=== PATIENT | male | born 1990 | race Two or more races ===

== ENCOUNTER 2022-11-29 14:48 | Emergency (ER) | payer SELFPAY ==
[2022-11-29 15:02] VITALS: BP 134/84; PULSE 97; RESP 18; TEMP 36.8; O2SAT 96; BMI 28.8
--- NOTE | 2022-11-29 15:02 | ED_ITS ---
HPI - General Adult General Chief complaint: Urogenital-Male Stated complaint: Genital issues Time Seen by Provider: 11/29/22 15:12 History of Present Illness HPI narrative: Patient is a 32 year old male presenting with urethral discharge that started today. He reports that it is yellow in color and he has had similar symptoms in the past and was treated for an STD. He reports that he has had new sexual partners recently. Denies fevers, chills, abdominal pain, nausea, vomiting, dy suria. Related Data Previous Rx's Medication Instructions Recorded doxycycline hyclate 100 mg capsule 100 mg PO BID 10 days #20 caps 11/29/22 metronidazole 500 mg tablet 500 mg PO BID 7 days #14 tabs 11/29/22 Allergies Allergy/AdvReac Type Severity Reaction Status Date / Time No Known Allergies Allergy Verified 11/29/22 15:02 Review of Systems Review of Systems: Constitutional : No Weight loss, No Fever, No Chills, No Fatigue, No Malaise ENT/Mouth : No sore throat, No Rhinorrhea Eyes: No Eye Pain, No Swelling, No Redness Cardiovascular : No Chest Pain, No SOB, No Dyspnea on Exertion, No Orthopnea, No Edema, No Palpitations Respiratory : No Cough, No Sputum, No Wheezing Gastrointestinal : No Nausea, No Vomiting, No Diarrhea, No Constipation, No abdominal Pain, No Hematochezia, No Melena Genitourinary :+discharge, No Dysuria, No Urinary Frequency, No Hematuria, Musculoskeletal : No joint pain, No Myalgias, No Joint Swelling Skin : No Skin Lesions, No rash Neuro : No Weakness, No Numbness, No Dizziness, No Headache Psych : No Anxiety/Panic, No Depression Heme/Lymph: No Bruising, No Bleeding,No Lymphadenopathy Endocrine : No Polyuria, No Polydipsia All other systems reviewed and are negative Yes all other systems are reviewed and are negative [facility] Social History Social History Advance Directives: No Advance Directives Information Provided: No Physical Exam ED Vital Signs: Vital Signs - 24 hr 11/29/22 15:02 Temperature 98.2 F Pulse Rate 97 Respiratory Rate 18 Blood Pressure 134/84 Pulse Oximetry 96 Oxygen Delivery Method Room Air BMI result Body Mass Index 28.8 VSS Appearance: Alert.? Oriented X3.? No acute distress.? Head: Normocephalic, atraumatic, no step-offs or deformities Eyes: Pupils equal, round and reactive to light.? CVS: Normal heart rate and rhythm.? Pulses normal.? Respiratory: No respiratory distress.? Breath sounds normal.? Abdomen: Soft and nontender.? Skin: Skin warm and dry.? Normal skin color.? Normal skin turgor.? Extremities: No lower extremity edema.? No calf ttp. 5/5 strength to bilateral upper and lower extremities Neuro: Oriented X 3.? No motor deficit.? No sensory deficit. CN 2-12 intact Sensitive exam refused. Course Course Course Narrative: This is an RME: Additional HPI, ROS, PE not included below will be deferred to primary provider. 32 year old male presenting with urethral discharge starting this morning. He reports its yellow and he has had this before. Plan: swabs, Reevaluation(s) Reevaluation #1: Patient tested positive for gonorrhea, he was adequately treated. Called patient to discuss results no answer. Form was filled out and sent to the state. Time: 11:08 Medications Administered Discontinued Medications Generic Name Dose Route Start Last Admin Trade Name Jie PRN Reason Stop Dose Admin Ceftriaxone Sodium 500 mg 11/29/22 15:06 11/29/22 15:19 Ceftriaxone Sodium 500 Mg Vial IM 11/29/22 15:07 500 mg ONCE ONE Administration Doxycycline Monohydrate 100 mg 11/29/22 15:06 11/29/22 15:19 Doxycycline Monohydrate 100 Mg Capsule PO 11/29/22 15:07 100 mg ONCE ONE Administration Metronidazole 500 mg 11/29/22 15:06 11/29/22 15:19 Metronidazole 500 Mg Tablet PO 11/29/22 15:07 500 mg ONCE ONE Administration Medical Decision Making Medical Decision Making [facility] Narrative: 15:10 32 year old male with yellow urethral discharge, concern for STD. Exam benign, sensitive exam refused. This is likely chlamydia vs gonorrhea. Will rule out urinary tract infection with UA. I do not suspect pyelonephritis due to no fever, chills or dysuria. Unlikely nephrolithiasis due to symptoms and history of new sexual partner. I do not suspect forniers. Plan: UA and CT NG, discharge from the waiting room with ceftriaxonetrena metro Patient agrees to prophylactic treatment for gonorrhea, chlamydia and trichomonas. 500mg IM ceftriaxone has been given here and scripts for doxycycline 100 mg po BID X 7 days and metronidazole 500 mg po BID X 7 days have been given to the patient. Educated on safe sex practices, full pannel STD testing and speaking to? partners on possible STD. Differential Diagnosis Differential Diagnoses: The differential diagnosis associated with the presentation includes This is likely chlamydia vs gonorrhea. Will rule out urinary tract infection with UA. I do not suspect pyelonephritis due to no fever, chills or dysuria. Unlikely nephrolithiasis due to symptoms and history of new sexual partner. I do not suspect forniers. Admission/Observation Consideration of admission/observation: Escalation of care including admission/observation considered Not indicated. Lab Data Labs: Lab Results 11/29/22 Range/Units 15:33 Urine Color Yellow Urine Appearance Clear Urine pH 5.5 (5.0-9.0) Ur Specific [place] 1.020 (1.005-1.025) Urine Protein Trace (Neg-Trace) mg/dL Urine Glucose (UA) Negative (Negative) mg/dL Urine Ketones Negative (Negative) mg/dL Urine Blood Negative (Negative) Urine Nitrite Negative (Negative) Ur Leukocyte Esterase Small (1+) H (Negative) Urine RBC 0-2 (0-2) /HPF Urine WBC 0-5 (0-5) /HPF Ur Squamous Epith Cells 0-2 (0-2) /HPF Urine Bacteria None Seen (None Seen) Hyaline Casts 0-2 (0-2) /LPF Chlam trachomat DNA PCR NOT DETECTED (Not Detect.) N.gonorrhoeae DNA (PCR) DETECTED A (Not Detect.) Prescription Management I considered prescription management with: Antibiotic Core Measures AMI core measures followed: Yes Measure exclusions: not indicated Discharge Plan Discharge Clinical Impression: Encounter for assessment of STD exposure Patient Disposition: Home, Self-Care Instructions: Sexually Transmitted Diseases (ED), Safe Sex Practices (ED) Additional Instructions: Take your medications as prescribed. If you were prescribed antibiotics today, it is important that you take your medication to their entirety, do not skip any doses, do not finish them early. Follow-up with your primary care provider this week. Return to the emergency department with new or worsening symptoms. Such as fevers, chills, chest pain, shortness of breath, nausea, vomiting, dizziness, headache, vision changes, lethargy In case of emergency call 911 You were treated here today with ceftriaxone, a medication that treats g onorrhea. I have sent to your pharmacy Metronidazole that covers trichomonas, and Doxycycline which covers for chlamydia. Please be reevaluated by a healthcare provider after completing your antibiotics. Do not stop them early, do not skip any doses. Until you are reevaluated by a health care provider please practice safe sex as disucussed. Please also have a conversation with your sexual partners.? I also advise you to obtain full panel STD testing to test for other STDs including HIV, Hepatitis B & C and syphilis with your PCP or a local clinic. Prescriptions: New doxycycline hyclate 100 mg capsule 100 mg PO BID 10 Days Qty: 20 0RF metronidazole 500 mg tablet 500 mg PO BID 7 Days Qty: 14 0RF Interventions: ED Discharge Assessment Last Done: 11/29/22 15:36 Discharge Date/Time: 11/29/22 15:37
[2022-11-29] MEDS: Doxycycline Monohydrate 100 MG CAPSULE PO (15:19)
[2022-11-29] MEDS: cefTRIAXone sodium 500 MG VIAL IM (15:19)
[2022-11-29] MEDS: metroNIDAZOLE 500 MG TABLET PO (15:19)
[2022-11-29 15:45] LABS: Appearance Urine Clear; Color Urine Yellow; Glucose Urine UA Negative (Negative); Leukocyte Esterase Urine Small (1+) (Negative); Nitrite Urine Negative (Negative); PH 5.5 (5.0-9.0); UMIC TRIGGER UACC YES; Urine Blood Negative (Negative); Urine Ketones Negative (Negative); Urine Protein Trace mg/dL (Neg-Trace)
[2022-11-29 16:02] LABS: Bacteria Urine None Seen (None Seen); Hyaline Casts Urine 0-2 /LPF (0-2); RBC Urine 0-2 /HPF (0-2); Squamous Epithelial Cell Urine 0-2 /HPF (0-2); UACC Culture Trigger YES; WBC Urine 0-5 /HPF (0-5)
[2022-11-29 17:48] LABS: CT PCR NOT DETECTED (Not Detect.); NG PCR DETECTED (Not Detect.)
== END 2022-11-29 15:37 | disposition home or self-care (01) ==
LOC: HO.ED 15:19
PROVIDERS: Physician Assistant; Emergency Provider Emergency Medicine
DX: R36.9 Urethral discharge, unspecified (principal); Z20.2 Contact with and (suspected) exposure to infections with a predominantly sexual mode of transmission; Z79.899 Other long term (current) drug therapy
CPT/HCPCS: 0353U; 81001; 87086; 96372; 99282; 99284; J0696